=== PATIENT | male | born 1995 | race Two or more races ===

== ENCOUNTER 2016-12-14 09:02 | Emergency (ER) | payer OTHER ==
[~2016-12-14] VITALS: Ht 167.6 cm; Wt 95.3 kg
[2016-12-14] MEDS ORDERED: IBUPROFEN 400 MG TABLET. PO ONE (09:30)
--- NOTE | 2016-12-14 09:42 | PHYS DOC ---
Past Medical History Past Medical History: No Pertinent History Past Surgical History: No Surgical History Alcohol Use: Occasionally Drug Use: Marijuana Adult General Chief Complaint Chief Complaint: ABDOMINAL PAIN HPI HPI Patient is a 21 year old male who presents with intermittent right lower quadrant and right low back pain that radiates to his groin for the past 2 months. States that it does not occur daily, but has occurred most days. His symptoms have been worse in the past 2-3 days. He has associated dysuria. He has nausea and lightheadedness when his pain is bad. Does note some loose stools in the past couple of days as well. He denies history of kidney stones or STDs. He denies penile lesions or discharge. He denies testicular swelling or penile swelling. He denies emesis, constipation, hematuria, fever or chills, rash, sick contacts, recent travel or antibiotics. Review of Systems Review of Systems Constitutional: Denies fever or chills [] Eyes: Denies change in visual acuity, redness, or eye pain [] HENT: Denies nasal congestion or sore throat [] Respiratory: Denies cough or shortness of breath [] Cardiovascular: No additional information not addressed in HPI [] GI: Denies vomiting, bloody stools or diarrhea [] : Denies hematuria [] Musculoskeletal: Denies joint pain [] Integument: Denies rash or skin lesions [] Neurologic: Denies headache, focal weakness or sensory changes [] Endocrine: Denies polyuria or polydipsia [] Current Medications Current Medications Current Medications Medications (Trade) Dose Ordered Sig/Florentino Start Time Stop Time Status Last Admin Dose Admin Ibuprofen (Motrin) 400 mg 1X ONCE 12/14/16 09:30 12/14/16 09:31 DC 12/14/16 09:32 400 MG Allergies Allergies Allergies Coded Allergies Type Severity Reaction Last Updated Verified No Known Drug Allergies 12/14/16 No Physical Exam Physical Exam Constitutional: Well developed, well nourished, no acute distress, non-toxic appearance. [] HENT: Normocephalic, atraumatic, bilateral external ears normal, oropharynx moist, nose normal. [] Eyes: PERRLA, EOMI. [] Neck: Normal range of motion, supple. [] Cardiovascular:Heart rate regular rhythm [] Lungs & Thorax: Bilateral breath sounds clear to auscultation [] Abdomen: Bowel sounds normal, soft, moderate right lower quadrant tenderness, no guarding or rebound. [] Genitourinary: Normal-appearing external genitalia, no rash or lesions, no penile drip, no swelling or discoloration of the penis or testicles or scrotum, appropriately tender testicles, no inguinal masses or cords swelling Skin: Warm, dry, no erythema, no rash. [] Back: No tenderness, no CVA tenderness. [] Extremities: No tenderness, ROM intact, no edema. [] Neurologic: Alert and oriented X 3, normal motor function, normal sensory function, no focal deficits noted. [] Psychologic: Affect normal, judgement normal, mood normal. [] Current Patient Data Vital Signs Vital Signs Date Time Temp Pulse Resp B/P (MAP) Pulse Ox O2 Delivery O2 Flow Rate FiO2 12/14/16 09:14 97.2 71 18 133/93 (106) 97 Room Air 97.2 Lab Values Laboratory Tests Test 12/14/16 09:06 Urine Collection Type Unknown Urine Color Yellow Urine Clarity Clear Urine pH 6.0 Urine Specific [place] >=1.030 Urine Protein Negative mg/dL (NEG-TRACE) Urine Glucose (UA) Negative mg/dL (NEG) Urine Ketones (Stick) Trace mg/dL (NEG) Urine Blood Negative (NEG) Urine Nitrite Negative (NEG) Urine Bilirubin Small (NEG) Urine Urobilinogen Dipstick 1.0 mg/dL (0.2 mg/dL) Urine Leukocyte Esterase Negative (NEG) Urine RBC Occ /HPF (0-2) Urine WBC Occ /HPF (0-4) Urine Squamous Epithelial Cells Few /LPF Urine Bacteria 0 /HPF (0-FEW) Urine Mucus Marked /LPF Radiology/Procedures Radiology/Procedures CT abdomen and pelvis without contrast IMPRESSION: No acute or significant finding seen in the abdomen or pelvis DICTATED and SIGNED BY: ARMANDO VERMA MD DATE: 12/14/16 0904 Course & Med Decision Making Course & Med Decision Making Pertinent Labs and Imaging studies reviewed. (See chart for details) Initially had concern for ureteral colic versus appendicitis versus hernia versus other. Workup is unremarkable. Symptoms are controlled at this time. Recommend symptomatic care for possible irritable bowel syndrome and follow-up with primary care. Return precautions given. He understands and agrees plan. Dragon Disclaimer Dragon Disclaimer This electronic medical record was generated, in whole or in part, using a voice recognition dictation system. Departure Departure Impression: Primary Impression: Abdominal pain, right lower quadrant Disposition: 01 HOME, SELF-CARE Condition: STABLE Referrals: CATHLEEN CRANE MD (PCP) Patient Instructions: Irritable Bowel Syndrome-Brief Additional Instructions: Take dicyclomine as needed for abdominal pain. You can also take Tylenol or ibuprofen for pain. You may have irritable bowel syndrome. Follow-up with your primary care doctor within one week. Return for any concerns. Scripts Dicyclomine Hcl (DICYCLOMINE HCL) 10 Mg Capsule 1 CAP PO PRN Q6HRS Y for PAIN, #30 CAP 0 Refills Prov: Matthew BELLA MD 12/14/16 Matthew BELLA MD Dec 14, 2016 09:42
[2016-12-14 09:51] LABS: BILIRUBIN,URINE SMALL (NEG); GLUCOSE,URINE NEGATIVE (NEG); NITRITE,URINE NEGATIVE (NEG); PROTEIN,URINE NEGATIVE (NEG-TRACE)
[2016-12-14 09:55] LABS: BACTERIA,URINE 0 /HPF (0-FEW); RBC,URINE OCC /HPF (0-2); SQUAMOUS EPITHELIAL CELL,UR FEW /LPF; WBC,URINE OCC /HPF (0-4)
--- NOTE | 2016-12-14 10:00 | RAD ---
Indication right flank pain. Dysuria. Axial images through the abdomen and pelvis were obtained. Examination was tailored for the detection of renal and/or ureteral calculi. No IV or gastrointestinal contrast was administered. No prior CT imaging of the abdomen or pelvis is available. The lung bases are clear. No abnormality is seen involving the liver or spleen and the gallbladder appears grossly normal. No pancreatic abnormality is seen. The adrenal glands appear normal. The kidneys appear normal. No renal calculi are seen on either side. No hydronephrosis hydroureter or calcification is seen along the course of either ureter. An acute finding in the abdomen is not seen. No acute finding is seen in the pelvis. The appendix is seen in the right lower quadrant and appears normal. Scoliosis is noted IMPRESSION: No acute or significant finding seen in the abdomen or pelvis PQRS Compliance Statement: One or more of the following individualized dose reduction techniques were utilized for this examination: 1. Automated exposure control 2. Adjustment of the mA and/or kV according to patient size 3. Use of iterative reconstruction technique
[2016-12-14] MEDS ORDERED: DICY10CA3 PO (10:20)
[2016-12-14 10:25] VITALS: BP 116/74
== END 2016-12-14 10:28 | disposition home or self-care (01) ==
LOC: ER 09:02
DX: R10.31 Right lower quadrant pain (principal); M54.5 Low back pain; R30.0 Dysuria; R11.0 Nausea; R42 Dizziness and giddiness; R19.7 Diarrhea, unspecified; F12.10 Cannabis abuse, uncomplicated
CPT/HCPCS: 74176; 81001; 99285-25

== ENCOUNTER 2018-05-19 11:20 | Emergency (ER) | payer SELFPAY ==
[~2018-05-19] VITALS: Ht 185.4 cm; Wt 99.8 kg
[~2018-05-19 11:20] MED LIST: DICY10CA3 PO
[2018-05-19 11:32] VITALS: BP 154/73
[2018-05-19] MEDS ORDERED: IBUPROFEN 600 MG TABLET. PO ONE (11:45)
--- NOTE | 2018-05-19 12:02 | PHYS DOC ---
Past Medical History Past Medical History: No Pertinent History Past Surgical History: No Surgical History Alcohol Use: Occasionally Drug Use: Marijuana Adult General Chief Complaint Chief Complaint: FACE PROBLEM HPI HPI 23-year-old male presents to ER with complaints of nose and right side facial pain. Patient reports he had mechanical fall on Wednesday when he lost his balance causing him to fall face forward onto wood floor. Pt denies any loss of consciousness, dizziness, or N/V. Pt reports he had nosebleed at time of fall- denies any reoccurrence. Pt reports he has had some difficulty breathing thru nose with swelling- worse on rt side. Pt denies vision change, eye pain, tinnitus, or ear drainage. He reports taking tylenol last night- denies any OTC meds today. Review of Systems Review of Systems Constitutional: Denies fever or chills [] Eyes: Denies change in visual acuity, redness, or eye pain [] HENT: Reports nose pain into rt cheek w/difficulty breathing thru nose- worse on rt side. Reports nosebleed at time of fall- denies any since Respiratory: Denies cough or shortness of breath [] Cardiovascular: Denies CP GI: Denies abdominal pain, nausea, vomiting, bloody stools or diarrhea [] : Denies dysuria or hematuria. Denies incontinence Musculoskeletal: Denies back pain or joint pain [] Integument: Reports facial swelling- no abrasions Neurologic: Denies headache, focal weakness or sensory changes. Denies dizziness /lightheadedness All other systems were reviewed and found to be within normal limits, except as documented in this note. Current Medications Current Medications Current Medications Medications (Trade) Dose Ordered Sig/Florentino Start Time Stop Time Status Last Admin Dose Admin Ibuprofen (Motrin) 600 mg 1X ONCE 05/19/18 11:45 05/19/18 11:46 DC 05/19/18 11:47 600 MG Allergies Allergies Allergies Coded Allergies Type Severity Reaction Last Updated Verified No Known Drug Allergies 12/14/16 No Physical Exam Physical Exam Constitutional: Well developed, well nourished, no acute distress, non-toxic appearance. Clear speech. Steady gait HENT: Normocephalic, swelling/mild bruising to bridge of nose into rt cheek- with deformity of bridge of nose slight deviation to lt. Bilat. nares patent with no bleeding. Mild tenderness sinuses. No crepitus, bilateral ears normal, oropharynx moist, no oral injury. Eyes: 3mm PERRLA, EOMI- no eye pain with movements, no nystagmus, conjunctiva normal, no discharge. [] Neck: Normal range of motion, no tenderness- no midline tenderness on palp. or palp. deformity, supple, no stridor. [] Cardiovascular:Heart rate regular rhythm, no murmur [] Lungs & Thorax: Bilateral breath sounds clear to auscultation. Resp. equal/ nonlabored Abdomen: Bowel sounds normal, soft, no tenderness, no masses, no pulsatile masses. [] Skin: Warm, dry, no erythema, no rash. [] Back: No tenderness- no midline spinal tenderness/deformity, no CVA tenderness. [] Extremities: Pelvis stable. No tenderness, no cyanosis, no clubbing, ROM intact , no edema. [] Neurologic: Alert and oriented X 3, normal motor function, normal sensory function, no focal deficits noted. [] Psychologic: Affect normal, judgement normal, mood normal. [] Current Patient Data Vital Signs Vital Signs Date Time Temp Pulse Resp B/P (MAP) Pulse Ox O2 Delivery O2 Flow Rate FiO2 05/19/18 11:32 97.7 67 16 154/73 (100) 100 Room Air 97.7 EKG EKG [] Radiology/Procedures Radiology/Procedures PROCEDURE: CT MAXILLOFACIAL WO CONTRAST CT MAXILLOFACIAL WO CONTRAST dated 05/19/2018 12:10 PM Indication:. Pain after injuryFACIAL INJURY, NASAL PAIN AND PAIN UNDER EYES, NO PRIORS. Comparison: No comparison is available. Technique: Contiguous axial imaging the maxillofacial bones obtained with thin cut coronal and sagittal reconstruction. One or more of the following individualized dose reduction techniques were utilized for this examination: 1. Automated exposure control 2. Adjustment of the mA and/or kV according to patient size 3. Use of iterative reconstruction technique Findings: There is mild deformity of the right nasal bone with small radiolucent line along its upper margin. No displacement. The left nasal bone is intact. The nasal septum is intact. There is a prominent nasal septal spur with slight nasal septal deviation to the right. Orbital hoskins and maxillary hoskins are intact. No zygomatic arch fracture. Mandible is intact. No bony destructive process or periostitis. The mastoid air cells are clear. Mild mucosal thickening of the bilateral ethmoid and maxillary sinuses. The right ostiomeatal unit is occluded. The left ostiomeatal unit Is patent. There is a small rodolfo bullosa on the left. Mild bilateral nasal turbinate hypertrophy. Sphenoid and frontal sinuses are clear. Visualized soft tissue structures are unremarkable. There borderline enlarged bilateral cervical chain lymph nodes, nonspecific. Imaged portions the brain parenchyma unremarkable. IMPRESSION: 1. Suspected small nondisplaced fracture of the right nasal bone. 2. Otherwise no evidence of displaced facial fracture. 3. Mild sinus disease with occlusion of the right ostiomeatal unit. Electronically signed by: Cuauhtemoc Sena MD (05/19/2018 12:28 PM) [facility] DICTATED and SIGNED BY: CUAUHTEMOC SENA MD DATE: 05/19/18 122 Course & Med Decision Making Course & Med Decision Making Pertinent Labs and Imaging studies reviewed. (See chart for details) Discussed CT results with pt and his with report of "suspected small nondisplaced fracture of the right nasal bone". On re-eval pt is in no visible distress A&Ox3 with no focal neuro deficits. Patient reports slight improvement in pain following dose of ibuprofen. Discussed follow-up with ENT. Education provided on s&s to return to ER for an discharge instructions were discussed. Patient advised on ice packs and [id number] Tylenol and/or ibuprofen as directed on container for pain control. Dragon Disclaimer Dragon Disclaimer This electronic medical record was generated, in whole or in part, using a voice recognition dictation system. Departure Departure Impression: Primary Impression: Nose fracture Disposition: HOME, SELF-CARE Condition: STABLE Referrals: CATHLEEN CRANE MD (PCP) Patient Instructions: Nasal Fracture Additional Instructions: Tylenol and ibuprofen as needed for pain control as directed on container. Ice pack to facial swelling every 3-4 hours for 20-30 minutes at a time avoid direct contact of ice to skin. You can follow-up for further care and evaluation with Ear, Nose and Throat (ENT ) doctor as needed with concerns. ASHLEY SHARMA APRN May 19, 2018 12:02
--- NOTE | 2018-05-19 12:32 | RAD ---
CT MAXILLOFACIAL WO CONTRAST dated 05/19/2018 12:10 PM Indication:. Pain after injuryFACIAL INJURY, NASAL PAIN AND PAIN UNDER EYES, NO PRIORS. Comparison: No comparison is available. Technique: Contiguous axial imaging the maxillofacial bones obtained with thin cut coronal and sagittal reconstruction. One or more of the following individualized dose reduction techniques were utilized for this examination: 1. Automated exposure control 2. Adjustment of the mA and/or kV according to patient size 3. Use of iterative reconstruction technique Findings: There is mild deformity of the right nasal bone with small radiolucent line along its upper margin. No displacement. The left nasal bone is intact. The nasal septum is intact. There is a prominent nasal septal spur with slight nasal septal deviation to the right. Orbital hoskins and maxillary hoskins are intact. No zygomatic arch fracture. Mandible is intact. No bony destructive process or periostitis. The mastoid air cells are clear. Mild mucosal thickening of the bilateral ethmoid and maxillary sinuses. The right ostiomeatal unit is occluded. The left ostiomeatal unit Is patent. There is a small rodolfo bullosa on the left. Mild bilateral nasal turbinate hypertrophy. Sphenoid and frontal sinuses are clear. Visualized soft tissue structures are unremarkable. There borderline enlarged bilateral cervical chain lymph nodes, nonspecific. Imaged portions the brain parenchyma unremarkable. IMPRESSION: 1. Suspected small nondisplaced fracture of the right nasal bone. 2. Otherwise no evidence of displaced facial fracture. 3. Mild sinus disease with occlusion of the right ostiomeatal unit. Electronically signed by: Cuauhtemoc Sena MD (05/19/2018 12:28 PM) [facility]
== END 2018-05-19 13:00 | disposition home or self-care (01) ==
LOC: ER 11:20
DX: S02.2XXA Fracture of nasal bones, initial encounter for closed fracture (principal); W18.39XA Other fall on same level, initial encounter; Y93.89 Activity, other specified; Y92.89 Other specified places as the place of occurrence of the external cause; Y99.8 Other external cause status
CPT/HCPCS: 70486; 99284